=== PATIENT | female | born 1985 | race Caucasian/White ===

== ENCOUNTER 2016-07-15 01:05 | Emergency (ER) | payer SELFPAY ==
--- NOTE | 2016-07-15 07:05 | ER ---
ADMIT: 07/15/2016 RM/LOC: ER [facility] MR#: [id number] [address] [facility] [place], [place] [address] [facility] [address] [place] [address] Emergency Room Report SEX: F AGE: 31 : 1985 DATE: 07/15/2016 The patient is a 31-year-old female with anxiety, well-known to this physician and institution, complaining of rectal pain for the past 3 weeks with occasional bleeding. Exam remarkable for nontoxic, afebrile female, in no acute distress. Rectal, no evidence of blood or mass. The patient given Toradol, Dilaudid, Reglan. Advised to follow up with Dr. Contreras as needed. Ronald Ojeda MD/ daniel JOB #: [id number] CC: Ronald Ojeda MD, Attending Physician Aislinn Contreras MD
== END 2016-07-15 02:15 | disposition home or self-care (01) ==
LOC: ER 01:05
DX: K62.89 Other specified diseases of anus and rectum (principal); F41.9 Anxiety disorder, unspecified; Z98.890 Other specified postprocedural states

== ENCOUNTER 2016-07-15 17:10 | Emergency (ER) | payer SELFPAY | END 2016-07-15 18:30 | disposition left against medical advice (07) | LOC: ER 17:10 | DX: Z53.21 Procedure and treatment not carried out due to patient leaving prior to being seen by health care provider (principal) ==

== ENCOUNTER 2016-07-15 23:20 | Emergency (ER) | payer SELFPAY ==
--- NOTE | 2016-07-16 10:25 | ER ---
ADMIT: 07/15/2016 RM/LOC: ER [facility] MR#: [id number] [address] [facility] [address] [place] [id number] [facility] [address] [place] [address] Emergency Room Report SEX: F AGE: 31 : 1985 DATE: 07/15/2016 CHIEF COMPLAINT: Injury to right thumb. HISTORY OF PRESENT ILLNESS: This is a pleasant 31-year-old female, who presents to the ER via EMS for complaints of a laceration to her right thumb. The patient states approximately 7 hours ago she was handling a coffee cup, when she cut her thumb on the handle. The patient states she has significant pain about the laceration site and describes some numbness and tingling in the distal extremity of the thumb. She communicates that she has a history of anxiety and is extremely anxious about getting this repaired today. PHYSICAL EXAMINATION: Reveals an approximately 1 cm laceration flap like on the distal aspect of the right thumb, it is neurovascularly intact. Capillary refill less than 2 seconds. She does have some decreased sensation to fine touch about the distal end. COURSE IN THE EMERGENCY ROOM: The patient was given 1 mg of Ativan IM prior to repairing the laceration. The site was cleaned with Betadine and a digital block to the right thumb was performed with 5 mL of lidocaine. The wound was explored after anesthesia was achieved. No evidence of any foreign body. It was irrigated with saline and repaired using two 5-0 Prolene sutures. The site was dressed with a bandage. IMPRESSION: 1. Laceration to distal right thumb. 2. Anxiety. DISPOSITION: Patient was discharged from the department in stable condition. She was told to keep the wound clean and dry. She was instructed on how to monitor for signs of infection including increased redness, purulent drainage. She was prescribed Keflex 500 mg p.o. b.i.d. x5 days due to the late presentation for primary closure. She was told to follow up with Dr. Main in approximately 7 days to have the sutures removed. She was instructed to use Tylenol or Motrin [id number] as needed for pain. Also, she was encouraged to use ice to reduce pain and swelling about the wound site. Her questions were sought and answered to the best of our ability and to the patient's satisfaction. She was discharged in the department in stable condition. ADE Gruber / Yoan Nicole MD / daniel JOB #: [id number] CC: Yoan Nicole MD, Attending Physician Jamar Main MD, Family Physician
== END 2016-07-16 01:20 | disposition home or self-care (01) ==
LOC: ER 23:20
PROC: 0HQFXZZ Repair Right Hand Skin, External Approach (ICD-10-PCS; principal; 2016-07-15)
DX: S61.011A Laceration without foreign body of right thumb without damage to nail, initial encounter (principal); F41.9 Anxiety disorder, unspecified; Z90.710 Acquired absence of both cervix and uterus; W45.8XXA Other foreign body or object entering through skin, initial encounter

== ENCOUNTER 2016-09-29 04:21 | Emergency (ER) | payer SELFPAY ==
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
== END 2016-09-29 05:45 | disposition home or self-care (01) ==
LOC: ER 04:21
DX: T74.21XA Adult sexual abuse, confirmed, initial encounter (principal); N39.0 Urinary tract infection, site not specified; S10.93XA Contusion of unspecified part of neck, initial encounter; F41.9 Anxiety disorder, unspecified; Z98.890 Other specified postprocedural states